=== PATIENT | male | born 1960 | race Caucasian/White ===

== ENCOUNTER → 2024-01-23 10:25 | Outpatient (REF) | payer MEDICARE, BC, SELFPAY ==
[2024-01-23 11:25] LABS: Blood Urea Nitrogen 11 mg/dl (9-20); Calcium 9.8 mg/dl (8.4-10.2); Carbon Dioxide 27 mmol/L (22-30); Chloride 101 mmol/L (98-107); Glucose 114 mg/dl (70-99); Potassium 4.4 mmol/L (3.5-5.1); Sodium 140 mmol/L (135-145); eGFR > 60.00
== END ==
LOC: RAD 10:25
PROVIDERS: ATTENDING PHYSICIAN Hospitalist; FAMILY PHYSICIAN Internal Medicine; OTHER PHYSICIAN Internal Medicine Infectious Disease; REFERRING PHYSICIAN Colon & Rectal Surgery
DX: R10.32 Left lower quadrant pain (principal)
CPT/HCPCS: 36415; 74177; 80048; Q9967

== ENCOUNTER 2024-01-26 18:27 | Emergency (ER) | payer MEDICARE, BC, SELFPAY ==
[2024-01-26 18:31] VITALS: BP 109/98; BMI 41.4
[2024-01-26 18:55] LABS: Hematocrit 40.4 % (39.0-52.0); Hemoglobin 14.5 g/dL (13.0-18.0); Mean Corp Hgb Conc. 35.9 g/dL (33.0-37.0); Mean Corpuscular Volume 86.3 fL (80.0-94.0); Mean Platelet Volume 9.1 fL (7.4-10.4); Platelet Count 291 10^3/uL (130-400); Red Blood Cell Count 4.68 10^6/uL (4.70-6.10); Red Cell Dist. Width 13.1 % (11.5-14.5); White Blood Cell Count 11.5 10^3/uL (4.8-10.8)
[2024-01-26 19:11] LABS: ALT (SGPT) 64 U/L (0-50); AST (SGOT) 87 U/L (17-59); Albumin 3.3 g/dl (3.5-5.0); Alkaline Phosphatase 56 U/L (38-126); Blood Urea Nitrogen 24 mg/dl (9-20); Calcium 8.9 mg/dl (8.4-10.2); Carbon Dioxide 27 mmol/L (22-30); Chloride 96 mmol/L (98-107); Estimated Creatinine Clearance 106 ml/min; Glucose 132 mg/dl (70-99); Potassium 3.7 mmol/L (3.5-5.1); Sodium 133 mmol/L (135-145); Total Bilirubin 0.6 mg/dl (0.2-1.3); Total Protein 5.9 g/dl (6.3-8.2); eGFR > 60.00
[2024-01-26 20:00] VITALS: BP 148/93
[2024-01-26 21:00] VITALS: BP 144/68
[2024-01-26] MEDS: NSS 1000 IV (21:20)
[2024-01-26] MEDS: PEPCID 20 MG IV (21:20)
[2024-01-26] MEDS: DECADRON 10 MG IV (21:20)
[2024-01-26] MEDS: BENADRYL 25 MG IV (21:20)
[2024-01-26 22:00] VITALS: BP 155/98
--- NOTE | 2024-01-26 22:49 | ED.GENMED ---
History of Present Illness
General
Chief Complaint: Weakness
Source: patient
Exam Limitations: none
Time Seen by Provider: 01/26/24 20:53
History of Present Illness
History of Present Illness:
64-year-old male presents with generalized weakness sensation of feeling aloof and a rash. This started after starting Levaquin and Flagyl for diverticulitis. He had CT scan of his abdomen performed here in this hospital 2 days ago. He has had
Levaquin before without any issues but has never had Flagyl. He developed a rash starting today. He felt cognitively in the fog. He missed the chair and fell and was unable to get up. He states his abdominal pain that he had for the
diverticulitis is completely gone. He denies fevers or chills. No other complaints at this time
Past History
Past History
ED Past Medical History: Other (HIV)
ED Past Surgical History: Brain and Other (Lipoma removal abdomen)
Social History
Tobacco: Smoker
Alcohol: Occasional
Drug: None
Personal:
Phy Exam
Physical Exam
Physical Exam:
General: Well-appearing male no acute respiratory distress
HEENT: Normocephalic mucosa moist neck is supple
Heart: Bradycardic but regular
Lungs: Clear no wheeze
Abdomen is soft nontender nondistended no guarding rebound normal bowel sounds
Skin: Erythematous rash not raised petechial diffuse over the trunk arms and legs slightly pruritic but not painful
Extremities: Mild pitting edema bilateral lower extremities
Course
Orders/Labs/Results
Orders:
Orders
01/26/24 18:42
EKG [Electrocardiogram (*1)] Urgent
Reason for Study: Atrial Fibrillation
01/26/24 18:43
EKG- Treatment ONCE
01/26/24 18:46
Complete Blood Count/No Diff Urgent
Comprehensive Metabolic Panel Urgent
01/26/24 21:08
0.9% Sodium Chloride 1000 ml [Nss] 1,000 ml IV BOLUS
Dexamethasone Sod Phosphate [Decadron] 10 mg IV NOW STA
Diphenhydramine [Benadryl] 25 mg IV NOW STA
Famotidine [Pepcid] 20 mg IV NOW STA
Abnormal Lab Results
01/26/24
18:46
WBC 11.5 H 10^3/uL
(4.8-10.8)
RBC 4.68 L 10^6/uL
(4.70-6.10)
Sodium 133 L mmol/L
(135-145)
Chloride 96 L mmol/L
(98-107)
BUN 24 H mg/dl
(9-20)
Glucose 132 H mg/dl
(70-99)
AST 87 H U/L
(17-59)
ALT 64 H U/L
(0-50)
Total Protein 5.9 L g/dl
(6.3-8.2)
Albumin 3.3 L g/dl
(3.5-5.0)
01/26/24 18:46
01/26/24 18:46
Vital Signs
Initial and Last Documented VS:
Initial Vital Signs
Temp Pulse Resp BP Pulse Ox
98.1 F 74 16 109/98 95
01/26/24 18:31 01/26/24 18:31 01/26/24 18:31 01/26/24 18:31 01/26/24 18:31
Last Documented Vital Signs
Temp Pulse Resp BP Pulse Ox
98.1 F 55 15 144/68 98
01/26/24 18:31 01/26/24 21:00 01/26/24 21:00 01/26/24 21:00 01/26/24 21:00
MDM/Problems Addressed
Differential Diagnosis Includes:
Fatigue weakness rash after starting Levaquin and Flagyl. Question possible medication reaction. There is no sloughing of the skin or mucosal involvement to suggest Crisostomo-Boone's. Patient's abdominal pain is completely resolved. I reviewed
his CAT scan from 3 days ago that was performed as an outpatient with demonstrate mild acute sigmoid diverticulitis. Clinically there is no tenderness on exam. No fever here. Patient has had multiple antibiotic allergies. At this point we
discussed the option for stopping any antibiotics given his resolution of pain and potential reaction to either the Levaquin or Flagyl. He was okay with this. He is given fluids here Benadryl Pepcid and Decadron and the rash was significantly
improved. Patient expresses his desire to go home. At this point no indication for admission. Stable for discharge
*Critical Care Note
Total Time (30-74mins, 75-104mins- exclusive of procedures): Not Applicable
ED Attending Note
-
Portions of this chart may have been created with voice recognition software.� Occasional wrong word or��sound alike� substitutions may have occurred due to the inherent limitations of voice recognition software.
Discharge Plan
Departure
Patient Disposition: Home (Routine Discharge)
Date of Disposition: 01/26/24
Time of Disposition: 22:59
Patient with high blood pressure during this ER visit?: No
Discharge Problem:
Adverse drug reaction
Instructions: Generalized Weakness (DC)
Prescriptions:
No Action
furosemide 40 MG tablet
40 mg PO DAILY
levetiracetam 500 MG tablet
500 mg PO BID
gabapentin 300 MG capsule
300 mg PO TID
aspirin 81 MG tablet,chewable
81 mg PO DAILY
montelukast 10 MG tablet
10 mg PO QPM
albuterol sulfate 1 PUFF HFA aerosol inhaler
2 puff inhalation R Q4HPRN PRN (Reason: asthma)
emtricitabine-tenofovir (TDF) [Truvada] 1 EACH tablet
1 tab PO DAILY
atazanavir [Reyataz] 300 MG capsule
300 mg PO DAILY
ritonavir 100 MG tablet
100 mg PO DAILY
docosahexaenoic acid-epa 1 CAP capsule
1 cap PO BID
Co Q-10
1 tab PO DAILY
Vitamin E :
1 tab PO DAILY
mupirocin 1 APPLIC ointment
1 applic topical TID Qty: 30 0RF
Referrals:
Hilton Coy MD [Family Provider] -
Activity Restrictions/Additional Instructions:
Continue with Benadryl if needed for rash. Drink plenty of fluids. Stop antibiotics for now. Return for worsening symptoms
Interventions
Interventions:
*Risk Screen - Suicide Last Done: 01/26/24 18:31
*General Assessment Last Done: 01/26/24 18:31
*Neglect/Abuse Screening Last Done: 01/26/24 18:31
*ED COVID-19 Vaccine History Last Done: 01/26/24 18:31
ED- Cardiac Assessment Last Done: 01/26/24 20:10
ED- Neurological Assessment Last Done: 01/26/24 20:10
ED- Pulmonary Assessment Last Done: 01/26/24 20:10
Discharge Date and Time
Print Language: FINNISH
== END 2024-01-26 23:15 | disposition home or self-care (01) ==
LOC: EMR 18:27
PROVIDERS: EMERGENCY PHYSICIAN Emergency Medicine; FAMILY PHYSICIAN Internal Medicine
DX: R53.1 Weakness (principal); R21 Rash and other nonspecific skin eruption; T50.905A Adverse effect of unspecified drugs, medicaments and biological substances, initial encounter; F17.200 Nicotine dependence, unspecified, uncomplicated
CPT/HCPCS: 99284; 96374; 96375 ×2; 96361; 80053; 85027; 93005

== ENCOUNTER 2024-02-26 19:45 | Inpatient (IN) | payer MEDICARE, BC, SELFPAY ==
[2024-02-26 16:38] VITALS: BP 139/98
--- NOTE | 2024-02-26 16:50 | EDRN ---
1GM tylenol given in triage at 1642, unable to scan and administer in JUL because pts weight is not verified.
1000mg PO Tylenol given in triage.
[2024-02-26] MEDS: TYLENOL 1000 MG PO (16:54)
--- NOTE | 2024-02-26 17:23 | ED.GENMED ---
History of Present Illness
General
Chief Complaint: Fever
Time Seen by Provider: 02/26/24 17:23
History of Present Illness
History of Present Illness:
TIME OF INITIAL ENCOUNTER: 5:30 PM
HPI: Patient presents after abnormal CT of the abdomen pelvis was obtained. He was recently treated for diverticulitis with Cipro and Bactrim. He more recently had a general unwell feeling and ended up having another CT today which was abnormal.
After he came back from CT he was febrile and did not feel well in general. He came to the closest hospital which is [facility] however he is known to [facility] as well. He has been seen by [facility] in the past who performed a
colonoscopy about 8 years ago but he never had any surgeries.
EXAM:
GENERAL: Appears somewhat weak and debilitated
HEENT: Moist oral mucosa
CARDIOVASCULAR: No murmurs, tachycardic heart rate, regular rhythm, No chest wall tenderness
PULMONARY: No respiratory distress, breath sounds are clear and equal
ABDOMEN: Soft with no peritoneal signs, no tenderness, elevated BMI noted however there is no significant tenderness
NEUROLOGIC: Excellent strength all extremities, no coordination deficits
PSYCHIATRIC: Appropriate mental status, normal insight and judgement
EXTREMITIES: Nontender, no edema, moves all extremities equally
SKIN: Very warm to touch consistent with fever
NUMBER AND COMPLEXITY OF PROBLEMS ADDRESSED AT THE ENCOUNTER
� Chronic conditions affecting care: Diverticular disease, diabetes, HIV positive but undetectable recently, smoker
� Acute Exacerbation and/or Progression of Chronic Illness: This is an acute problem
� Differential Diagnosis includes: Diverticulitis, C. difficile, colitis
AMOUNT AND/OR COMPLEXITY OF DATA TO BE REVIEWED AND ANALYZED
� I performed an independent evaluation of and my interpretation is:
EKG: Sinus 111, diffuse ST depression new in comparison to 01/26/2024 and is also tachycardic now as well
CT: CT scan from earlier today shows 'progress severe acute diverticulitis of the distal sigmoid with new probable inflamed diverticulum however air filled developing abscess cannot be excluded'�I personally reviewed these
images and agree with radiologist interpretation
X-rays:
Laboratory Studies: Lactic 3.4, white count 9.0, hemoglobin 14.1, potassium 3.4
Other:
� Review of other/old records: I reviewed the recent old records, more significant leukocytosis was noted in 2016
� Clinical information was obtained by an independent historian: I spoke to the son at bedside
� Prescriptions/Medications Considered but not given:
� Further testing considered but not performed:
RISK OF COMPLICATIONS AND/OR MORBIDITY OR MORTALITY OF PATIENT MANAGEMENT
� Social determinants of health affecting care: Lives at home
� Discussion with other providers: Since patient states he did not tolerate penicillins and Flagyl and an ID doctor that he is aware of recommended moxifloxacin, I consulted Dr. Mercado via [place] text who recommended ertapenem 1 g
every 24 hours; Dr. Giang for admission
� Escalation of care including admission/observation vs risk of discharge considered: Since patient has worsening CT findings of diverticulitis and now febrile and generally has an unwell feeling, will admit for IV antibiotics
ANY OTHER UPDATES:
Past History
Past History
ED Past Medical History: Other (HIV)
ED Past Surgical History: Brain and Other (Lipoma removal abdomen)
Social History
Tobacco: Smoker
Alcohol: Occasional
Drug: None
Personal:
Phy Exam
Physical Exam
Physical Exam:
See HPI
Course
Orders/Labs/Results
Orders:
Orders
02/26/24 16:43
Acetaminophen [Tylenol] 1,000 mg .ROUTE .STK-MED ONE
Acetaminophen [Tylenol] 1,000 mg PO NOW STA
02/26/24 16:46
Electrocardiogram (*1) Urgent
Reason for Study: Other
Other Reason for Exam: Possible Sepsis
EKG- Treatment ONCE
02/26/24 17:08
Complete Blood Count/With Diff Urgent
Comprehensive Metabolic Panel Urgent
Lactic Acid Stat
Troponin I Urgent
02/26/24 17:44
0.9% Sodium Chloride 1000 ml [Nss] 1,000 ml IV BOLUS
02/26/24 17:46
0.9% Sodium Chloride 1000 ml [Nss] 1,000 ml IV BOLUS
02/26/24 17:48
Ertapenem [Invanz] 1,000 mg 0.9% Sodium Chloride [Nss] 50 ml IV NOW
02/26/24 17:51
STOOL [C difficile Antigen & Toxins] Urgent
JARAD Source: Feces/Stool
Specimen Description:
Stool Culture Urgent
JARAD Source: Feces/Stool
Specimen Description:
02/26/24 18:07
Blood Culture Urgent
JARAD Source: Blood/Venous
Specimen Description:
02/26/24 18:23
Blood Culture Routine
JARAD Source: Blood/Venous
Specimen Description:
02/26/24 18:24
Ertapenem [Invanz] 1,000 mg 0.9% Sodium Chloride [Nss] 50 ml IV NOW
02/26/24 18:34
Admit/Transfer Patient As Directed
Co-Sign Provider:
Level of Care: Inpatient admission
Assign to:: Medical/Surgical
Physician / Group: nuris
Diagnosis: sepsis diverticulitis
Reason for Hospitalization: sepsis diverticulitis
Expected length of stay greater than two midnights?: Yes
ELOS- Estimated Length of Stay in days: 2
I certify the patient meets the requirements for IP care: Yes
Code Status As Directed
Resuscitation Status: Full Code
PRN Pain Medication Management As Directed
May give lesser potent ordered pain med per pt: Yes
preference::
Protocol:: Medication orders for pain may be administered in a
manner that supports deferring to patient preference
when the pt is:
- Requesting an ordered lesser potent pain medication.
Least to most potent pain medications are defined
as: acetaminophen < NSAID < tramadol < opioids
(morphine, oxycodone, hydromorphone).
- Requesting a lesser dose of the same medication IF
ORDERED.
- Requesting a less intrusive route of administration
if both routes are prescribed by the provider (PO <
IV).
02/26/24 18:38
Stool Culture Urgent
JARAD Source: Feces/Stool
Specimen Description:
02/26/24 18:39
C difficile Antigen & Toxins Urgent
JARAD Source: Feces/Stool
Specimen Description:
Potassium Chloride [KCl] 40 meq PO NOW STA
Abnormal Lab Results
02/26/24
17:08
RBC 4.61 L 10^6/uL
(4.70-6.10)
Abs Immat Gran (auto) 0.1 H 10^3/uL
(0-0.05)
Absolute Neuts (auto) 8.1 H 10^3/uL
(1.4-6.5)
Absolute Lymphs (auto) 0.7 L 10^3/uL
(1.2-3.4)
Immature Gran % 0.6 H %
(0-0.5)
Neutrophils % 90.1 H %
(42.2-75.2)
Lymphocytes % 8.3 L %
(20.5-51.1)
Monocytes % 0.8 L %
(1.7-9.3)
Potassium 3.4 L mmol/L
(3.5-5.1)
Chloride 94 L mmol/L
(98-107)
Carbon Dioxide 31 H mmol/L
(22-30)
Glucose 127 H mg/dl
(70-99)
Lactic Acid 3.4 H mmol/L
(0.7-2.0)
02/26/24 17:08
02/26/24 17:08
Vital Signs
Initial and Last Documented VS:
Initial Vital Signs
Temp Pulse Resp BP Pulse Ox
103 F H 109 16 139/98 92
02/26/24 16:38 02/26/24 16:38 02/26/24 16:38 02/26/24 16:38 02/26/24 16:38
Last Documented Vital Signs
Temp Pulse Resp BP Pulse Ox
102.3 F H 109 16 139/98 92
02/26/24 18:14 02/26/24 16:38 02/26/24 16:38 02/26/24 16:38 02/26/24 16:38
*Critical Care Note
Total Time (30-74mins, 75-104mins- exclusive of procedures): Not Applicable
ED Attending Note
-
Portions of this chart may have been created with voice recognition software.� Occasional wrong word or��sound alike� substitutions may have occurred due to the inherent limitations of voice recognition software.
Discharge Plan
Departure
Patient Disposition: Admit
Date of Disposition: 02/26/24
Time of Disposition: 17:51
Presentation/result/management discussed w/ accepting MD/DO: Hospitalist
Discharge Problem:
Diverticulitis
Prescriptions:
No Action
furosemide 40 MG tablet
40 mg PO DAILY
levetiracetam 500 MG tablet
500 mg PO BID
gabapentin 300 MG capsule
300 mg PO TID
montelukast 10 MG tablet
10 mg PO HS
docosahexaenoic acid-epa 1 CAP capsule
1 cap PO BID
Theragen Tablet
1 tab PO DAILY
metformin 1,000 mg Tablet
1,000 mg PO BID
coenzyme Q10 [CoQ-10] 100 mg Capsule
100 mg PO DAILY
rosuvastatin 10 mg Tablet
10 mg PO HS
Januvia 100 mg Tablet
100 mg PO HS
Visbiome 112.5 billion cell Capsule
1 cap PO DAILY
Biktarvy 50-200-25 mg Tablet
1 tab PO DAILY
turmeric 400 mg Capsule
400 mg PO DAILY
fenugreek seed 610 mg Capsule
610 mg PO HS
Referrals:
Hilton Coy MD [Family Provider] -
Interventions
Interventions:
*Risk Screen - Suicide Last Done: 02/26/24 16:38
*General Assessment Last Done: 02/26/24 18:04
*Neglect/Abuse Screening Last Done: 02/26/24 18:04
ED- Fall Risk Assessment Last Done: 02/26/24 18:04
*ED COVID-19 Vaccine History Last Done: 02/26/24 18:04
ED- Neurological Assessment Last Done: 02/26/24 18:04
ED-Skin Assessment Last Done: 02/26/24 18:04
Discharge Date and Time
Print Language: PORTUGUESE
[2024-02-26 17:27] LABS: % Basophils 0.1 % (0-2); % Eosinophils 0.1 % (0-6); % Immature Granulocytes 0.6 % (0-0.5); % Lymphocytes 8.3 % (20.5-51.1); % Monocytes 0.8 % (1.7-9.3); % Neutrophils 90.1 % (42.2-75.2); Absolute Immature Granulocytes 0.1 10^3/uL (0-0.05); Absolute Lymphocytes 0.7 10^3/uL (1.2-3.4); Absolute Monocytes 0.1 10^3/uL (0.1-0.6); Absolute Neutrophils 8.1 10^3/uL (1.4-6.5); Hematocrit 40.8 % (39.0-52.0); Hemoglobin 14.1 g/dL (13.0-18.0); Mean Corp Hgb Conc. 34.6 g/dL (33.0-37.0); Mean Corpuscular Hgb 30.6 pg (27.0-31.0); Mean Corpuscular Volume 88.5 fL (80.0-94.0); Mean Platelet Volume 9.3 fL (7.4-10.4); Nucleated Red Blood Cells % 0 % (-); Platelet Count 390 10^3/uL (130-400); Red Blood Cell Count 4.61 10^6/uL (4.70-6.10); Red Cell Dist. Width 13.3 % (11.5-14.5)
[2024-02-26 17:37] LABS: ALT (SGPT) 27 U/L (0-50); Alkaline Phosphatase 75 U/L (38-126); Blood Urea Nitrogen 15 mg/dl (9-20); Calcium 9.6 mg/dl (8.4-10.2); Carbon Dioxide 31 mmol/L (22-30); Chloride 94 mmol/L (98-107); Glucose 127 mg/dl (70-99); Lactic Acid 3.4 mmol/L (0.7-2.0); Potassium 3.4 mmol/L (3.5-5.1); Sodium 137 mmol/L (135-145); Total Bilirubin 0.6 mg/dl (0.2-1.3); eGFR > 60.00
[2024-02-26 17:46] LABS: AST (SGOT) 28 U/L (17-59)
[2024-02-26 18:02] LABS: Troponin I < 0.012 ng/ml
--- NOTE | 2024-02-26 18:39 | HPS.HSE ---
Family Physician
-
Family Physician: Hilton Coy
Chief Complaint
-
abdominal pain
History of Present Illness
64-year-old male past medical history of HIV, history of toxoplasmosis of brain, seizures, diabetes, diverticulitis in 2016 presenting with intermittent loose stools and abdominal cramping. He originally developed symptoms in December and came to the
emergency room in January and was diagnosed with diverticulitis and treated with outpatient Levaquin and Flagyl. He developed an allergic reaction to Flagyl with rash and syncope so he stopped taking antibiotics. He came to the hospital next day
and was treated with Benadryl and steroids. He was not offered any further treatment for diverticulitis. He has fevers.
He denies any nausea or vomiting. He denies chest pain or shortness of breath.
He reports that has been taking his HIV medications and his recent CD4 count has been excellent.
Denies smoking alcohol use.
Medical History
Past Medical History
Past Medical History: Reports Other ( HIV, history of toxoplasmosis of brain, seizures, diabetes, diverticulitis in 2016 )
Past Surgical History: Reports None
Social History
Tobacco: Non-smoker
Alcohol: None
Drug: None
Family History
Family History: Not pertinent
Allergies / Home Medications
Allergies reflects when Allergies were last updated in [facility].
Home Medications with original date entered in [facility]
Allergy/Medication List:
Allergies
Allergy/AdvReac Type Severity Reaction Status Date / Time
Penicillins Allergy Unknown Unknown Verified 02/26/24 16:41
adhesive Allergy Unknown Verified 02/26/24 16:41
heparin Allergy Rash Verified 02/26/24 16:41
phenytoin sodium Allergy Unknown Verified 02/26/24 16:41
[From Dilantin]
phenytoin sodium extended Allergy Unknown Verified 02/26/24 16:41
[From Dilantin]
tetanus toxoid, adsorbed Allergy Unknown Verified 02/26/24 16:41
Home Medications
furosemide 40 mg tablet 40 mg PO DAILY 05/16/12
gabapentin 300 mg capsule 300 mg PO TID 05/16/12
levetiracetam 500 mg tablet 500 mg PO BID 05/16/12
montelukast 10 mg tablet 10 mg PO HS 05/16/12
docosahexaenoic acid (dha)-epa 120 mg-180 mg capsule 1 cap PO BID 09/24/15
Lactobac no.2-Bifidobac no.1-S. thermo 112.5 billion cell capsule (Visbiome) 1 cap PO DAILY 02/26/24
bictegravir 50 mg-emtricitabine 200 mg-tenofovir alafenam 25 mg tablet (Biktarvy) 1 tab PO DAILY 02/26/24
coenzyme Q10 100 mg capsule (CoQ-10) 100 mg PO DAILY 02/26/24
fenugreek seed 610 mg capsule 610 mg PO HS 02/26/24
metformin 1,000 mg tablet 1,000 mg PO BID 02/26/24
rosuvastatin 10 mg tablet 10 mg PO HS 02/26/24
sitagliptin phosphate 100 mg tablet (Januvia) 100 mg PO HS 02/26/24
therapeutic multivitamin 1 tab PO DAILY 02/26/24
turmeric 400 mg capsule 400 mg PO DAILY 02/26/24
Review of Systems
-
History Source: Patient
A 12 point ROS was completed and negative except as noted: Yes
Constitutional: Reports No Symptoms
EENT: Reports No Symptoms
Respiratory: Reports No Symptoms
Cardiac: Reports No Symptoms
Abdomen/GI: Reports No Symptoms
: Reports No Symptoms
Musculoskeletal: Reports No Symptoms
Skin: Reports No Symptoms
Neurological: Reports No Symptoms
Endocrine: Reports No Symptoms
Hematologic/Lymphatic: Reports No Symptoms
Psych: Reports No Symptoms
Physical Exam
Vital Signs
Vital Signs
Temp Pulse Resp BP Pulse Ox
102.3 F H 109 16 139/98 92
02/26/24 18:14 02/26/24 16:38 02/26/24 16:38 02/26/24 16:38 02/26/24 16:38
Physical Exam
General: Well Developed, Well Nourished and No Apparent Distress
HEENT: NormoCephalic, Moist mucous membranes and Atraumatic
Respiratory: Clear
Cardiac: S1/S2 and Regular Rhythm; No Murmur or Rub
GI: Soft, Non Tender, Non Distended and Normal Bowel Sounds; No Organomegaly
Rectal: Deferred by Provider
Musculoskeletal: No Clubbing, No Cyanosis and No Edema
Skin: No Rash
Neuro: Nonfocal/grossly intact
Laboratory Results
-
02/26/24 17:08
02/26/24 17:08
Laboratory Results
Lactic Acid 3.4 mmol/L (0.7-2.0) H 02/26/24 17:08
Total Bilirubin 0.6 mg/dl (0.2-1.3) 02/26/24 17:08
AST 28 U/L (17-59) 02/26/24 17:08
ALT 27 U/L (0-50) 02/26/24 17:08
Alkaline Phosphatase 75 U/L (38-126) 02/26/24 17:08
Troponin I < 0.012 ng/ml 02/26/24 17:08
Data Reviewed
-
Lab Data: Labs Reviewed by me
Old Records: Reviewed
Impression/Plan
-
IMPRESSION:
PLAN:
# Sepsis (fever, tachycardia) secondary to ongoing untreated diverticulitis of distal sigmoid colon
-CT scan shows progress severe acute diverticulitis of distal sigmoid colon, probable inflamed diverticulum, air-filled developing abscess cannot be excluded
-Check blood cultures
-IV fluids
-N.p.o.
-Ertapenem recommended by ID
-Colorectal consulted
-Hold Lasix, presumably given for lymphedema
-Check stool culture, C. difficile
# Hypokalemia
-Replete potassium
History of HIV
-Continue Biktarvy
History of toxoplasmosis of brain
-Treated many years ago
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
-Continue Keppra
Type 2 diabetes
-Hold sitagliptin, metformin
Diabetic neuropathy
-Continue gabapentin
Hyperlipidemia
-Continue statin
Full code
DVT prophylaxis�heparin
N.p.o.
[2024-02-26] MEDS: NSS 1000 IV ×3 (18:47→22:21)
[2024-02-26] MEDS: KCL 40 MEQ PO (18:53)
[2024-02-26] MEDS: INVANZ 60 MG IV (19:57)
[2024-02-26 20:06] VITALS: BP 130/67
[2024-02-26 21:44] VITALS: BP 130/72; BMI 39.3
[2024-02-26 23:00] VITALS: BP 132/82
[2024-02-26 23:12] LABS: Glucose - Point of Care 132 mg/dl (70-99)
[2024-02-27 00:21] LABS: Lactic Acid 2.2 mmol/L (0.7-2.0)
[2024-02-27] MEDS: TYLENOL 650 MG PO (00:24)
[2024-02-27 00:28] VITALS: BP 132/82
[2024-02-27] MEDS: MOTRIN 400 MG PO (02:36)
--- NOTE | 2024-02-27 04:29 | PTCARENOTE ---
Patient received from ED via stretcher and ambulated with assist to bed using a rolling walker. He was oriented to room and surroundings. HRR. Dry NPC, MILLER. Abdomen obese. +1 LE edema. Skin red all over but no noted rash. Initially patient
stated that is his baseline then later said he noticed redness on day of admission but couldn't remember when it started. Placed on 2lpm nasal cannula for Sat 91%. T on arrival 98.6. Tylenol for T 101.8 at routine rounds. with repeat to 102.9.
Discussed with GENERAL ADMINISTRATOR, covering house, via TT. Continue IVF as ordered. Motrin for aches as per order and ice packs for elevated Temp. repeat Lactic 2.2. Follow up T 100.2. Sat 94% on 2lpm nasal cannula. Patient sleeping comfortable at this
time.
--- NOTE | 2024-02-27 05:56 | PTCARENOTE ---
Lab tach reported left Ac skin tear from prior dressing. Nonadhesive foam dressing applied.
[2024-02-27 06:14] LABS: Hemoglobin 13.8 g/dL (13.0-18.0); Mean Corp Hgb Conc. 35.4 g/dL (33.0-37.0); Mean Corpuscular Volume 87.6 fL (80.0-94.0); Mean Platelet Volume 9.2 fL (7.4-10.4); Platelet Count 328 10^3/uL (130-400); Red Blood Cell Count 4.45 10^6/uL (4.70-6.10); Red Cell Dist. Width 13.6 % (11.5-14.5); White Blood Cell Count 23.9 10^3/uL (4.8-10.8)
[2024-02-27 06:36] LABS: Lactic Acid 1.9 mmol/L (0.7-2.0)
[2024-02-27 06:44] LABS: % Basophils 0.3 % (0-2); % Eosinophils 0.1 % (0-6); % Immature Granulocytes 0.7 % (0-0.5); % Lymphocytes 1.6 % (20.5-51.1); % Neutrophils 96.3 % (42.2-75.2); Absolute Basophils 0.1 10^3/uL (0-0.2); Absolute Immature Granulocytes 0.2 10^3/uL (0-0.05); Absolute Lymphocytes 0.4 10^3/uL (1.2-3.4); Absolute Monocytes 0.2 10^3/uL (0.1-0.6); Nucleated Red Blood Cells % 0 % (-)
[2024-02-27 07:17] LABS: ALT (SGPT) 26 U/L (0-50); AST (SGOT) 62 U/L (17-59); Albumin 2.7 g/dl (3.5-5.0); Alkaline Phosphatase 58 U/L (38-126); Blood Urea Nitrogen 22 mg/dl (9-20); Calcium 7.9 mg/dl (8.4-10.2); Carbon Dioxide 26 mmol/L (22-30); Chloride 100 mmol/L (98-107); Estimated Creatinine Clearance 67 ml/min; Glucose 106 mg/dl (70-99); Potassium 3.5 mmol/L (3.5-5.1); Sodium 136 mmol/L (135-145); Total Bilirubin 0.6 mg/dl (0.2-1.3); Total Protein 5.3 g/dl (6.3-8.2); eGFR 51.35
--- NOTE | 2024-02-27 07:21 | W.PN.HOSP.TC ---
Addendum entered and electronically signed by Angel Treadwell MD 02/27/24 14:50:
will be transferred to [facility] when bed available
-Accepted by Dr. Nathan on 02/27/2024
Addendum entered and electronically signed by Angel Treadwell MD 02/27/24 13:41:
presenitng with severe diverticulitis
-difficult case due to # of atb allergic to.
- -states allergic to flagyl and after recieving ertapnem had a reaction of diffuse erthema and itchiness
-if consult
-provide cipro and ?clinda
-ivf
-npo, can advance diet slowly to clears if nv improved
-no further diarrhea, last bm was small, soft and formed.
Original Note:
Today's Communication/Plan
-
Consulted infectious diseases and colorectal surgery. Patient was given ertapenem but states that he had an allergic reaction. Possibly might need to change antibiotics to 1 that he can tolerate or rule out that he had an allergic reaction in the
first place. Colorectal surgery consulted in order to assess risk of perforation or further diagnostic studies.
Assessment / Plan
Assessment / Plan
HPI: Patient is a 64-year-old male with a past medical history of HIV, toxoplasmosis of the brain, seizures, diabetes, and diverticulitis in 2015 presented to the emergency department with intermittent loose stools and abdominal cramping. He was
recently treated for diverticulitis with ciprofloxacin and Bactrim in January. He developed an allergic reaction of Flagyl with rash and syncope so he stopped taking the antibiotic. He came to the hospital the next day and was treated with
Benadryl and steroids. He had a general feeling of being unwell and ended up having another CT in the emergency department on the day of his presentation which showed progress severe acute diverticulitis of the distal sigmoid colon with new
probable inflamed diverticulum. After he came back from the CT he was febrile and did not feel well in general. He came to the city [facility] hospital which is [place] however he is known to [facility] as well. He was seen by [facility] in the
past and had a colonoscopy around 8 years ago. He has never had any surgeries. He denied any nausea or vomiting or chest pain or shortness of breath. He reported that he had been taking his HIV medications and his CD4 count had been excellent.
The patient was admitted to [facility] for acute diverticulitis.
Impression/Plan:
-Sepsis secondary to ongoing untreated diverticulitis of the distal sigmoid colon:
Patient presented to the emergency department with fever and tachycardia. Body temperature 103F, HR 129, BP 139/98
CT scan showed progress of severe acute diverticulitis of the distal sigmoid colon with new probable inflamed diverticulum.
Check blood culture
IV fluid support
N.p.o. status
Will consult infectious diseases consult�patient stated that he had an allergic reaction to ertapenem
Will consult colorectal
Lasix held�presumably given for lymphedema
Check stool culture
Check for C. difficile
Follow Lactic Acid
Consider further outpatient imaging with MRI - pancreatic cysts
Elevated WBCs at 23.9 on 02/27/2024
Recommend outpatient GI follow-up 6 to 8 weeks following discharge
-Hypokalemia:
Patient had a potassium of 3.5 in the emergency department -repleted
-Acute kidney injury:
Patient may be suffering from CKD stage II-IIIa -will need further lab testing to confirm
Creatinine increased at 1.5 on 02/27/2024
-Medical history of HIV:
Continue Biktarvy
-Medical history of toxoplasmosis of the brain:
Treated many years ago
Monitor patient and follow labs
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
Continue levetiracetam 500 mg twice daily
-Type 2 diabetes:
Holding sitagliptin and metformin
-Diabetic neuropathy:
Continue gabapentin
-Hyperlipidemia:
Continue rosuvastatin 10 mg daily
Full CODE STATUS
DVT prophylaxis: Lovenox
Data:
-Abdomen/pelvis CT scan conducted on 02/26/2024:
Progressed severe acute diverticulitis of the distal sigmoid colon. New probable inflamed diverticulum. However, an air-filled developing abscess cannot be excluded.
Moderate fecal material throughout the colon. Progressed
Hepatic fatty infiltration. Stable
Gallstones. Stable
Pancreatic cysts. Stable. MRI examination recommended for further characterization.
Anticipated Discharge: > 48 hours
Subjective/Interval History
-
Date of Service: February 27, 2024
Objective Data
-
Labs:
Laboratory Results
02/27/24
05:53
WBC 23.9 H
Hgb 13.8
Hct 39.0
Plt Count 328
Sodium 136
Potassium 3.5
Chloride 100
Carbon Dioxide 26
BUN 22 H
Creatinine 1.5 H
Glucose 106 H
Calcium 7.9 L D
Total Bilirubin 0.6
AST 62 H
ALT 26
Alkaline Phosphatase 58
Vital Signs:
Vital Signs
Temp Pulse Resp BP Pulse Ox
100.2 F 89 18 132/82 93
02/27/24 03:00 02/26/24 23:00 02/26/24 23:00 02/26/24 23:00 02/27/24 03:00
I&O
02/26/24 02/27/24 02/28/24
06:59 06:59 06:59
Intake Total 240 / 240
Balance 240 / 240
[2024-02-27] MEDS: NSS 1000 IV ×2 (08:02→17:28)
[2024-02-27 08:25] VITALS: BMI 40.1
[2024-02-27 08:25] LABS: Glucose - Point of Care 112 mg/dl (70-99)
[2024-02-27 08:52] VITALS: BP 96/53
[2024-02-27 09:40] VITALS: BP 110/59
[2024-02-27] MEDS: BIKTARVY 50-200-25 MG TABLET 1 TABLET PO (11:08)
[2024-02-27] MEDS: KEPPRA 500 MG PO ×2 (11:08→19:54)
[2024-02-27 12:18] LABS: Glucose - Point of Care 105 mg/dl (70-99)
[2024-02-27 12:31] VITALS: BMI 40.1
[2024-02-27] MEDS: BENADRYL 25 MG PO (13:17)
--- NOTE | 2024-02-27 13:49 | CON.CRS ---
Consultation
-
Performing Provider: Spencer Lees MD
Reason for Consultation: diverticulitis
Medical History
-
History of Present Illness:
Patient is a 64-year-old male with PMH of HIV (diagnosed many years ago, on Biktarvy, reports his last CD4 count was greater than the thousand), history of toxoplasmosis of the brain s/p craniotomy 2005, complicated by DVT s/p IVC filter (not on
AC), seizure disorder, type 2 diabetes, recurrent diverticulitis (last episode in 2016, treated nonoperatively) who presents with persistent pressure associated with BMs, diarrhea and fevers. He initially presented in December to the ER with cramping
and diarrhea. He underwent a CT at that time which showed acute sigmoid diverticulitis. He was initially treated with antibiotics, but had a reaction and these were stopped. He has had persistent symptoms over the last month. Over the last
couple of days, he developed malaise/generalized weakness, and a diffuse rash, associated with the persistent loose stools and abdominal pressure. His last colonoscopy was with Dr. Cook in 2015, which he reports as normal and was told to repeat
it in 8 years.
He states that his ID doctor is also at [place]. When he presented to [place] in 2016 for diverticulitis, he states that he was told that he needed emergency surgery and was sent to [place] via helicopter. He also states that after arriving at
[place], they said [place] 'used the wrong antibiotic' and he only required admission for 2 days at [place]. He feels that this rash that he has is associated with the antibiotic that he is receiving here. He also indicated that he does not
trust the doctors as much here and trusts the doctors at [place] much more.
Past Medical History
Past Medical History: Other (As above)
Past Surgical History: Other (As above, right THR 2011, left TKR in 2019)
Allergies / Home Medications
Allergy/AdvReac Type Severity Reaction Status Date / Time
adhesive Allergy Unknown Verified 02/26/24 16:41
heparin Allergy Rash Verified 02/26/24 16:41
Penicillins Allergy Unknown Verified 02/26/24 21:12
phenytoin sodium Allergy Unknown Verified 02/26/24 16:41
[From Dilantin]
phenytoin sodium extended Allergy Unknown Verified 02/26/24 16:41
[From Dilantin]
tetanus toxoid, adsorbed Allergy Unknown Verified 02/26/24 16:41
�Medication �Instructions �Recorded �Confirmed �Type
furosemide 40 mg tablet 40 mg PO DAILY Fluid 05/16/12 02/26/24 History
Retention/Swelling
gabapentin 300 mg capsule 300 mg PO TID Neurological 05/16/12 02/26/24 History
Condition
levetiracetam 500 mg tablet 500 mg PO BID Seizures 05/16/12 02/26/24 History
montelukast 10 mg tablet 10 mg PO HS Allergies 05/16/12 02/26/24 History
docosahexaenoic acid (dha)-epa 120 1 cap PO BID 09/24/15 02/26/24 History
mg-180 mg capsule
Lactobac no.2-Bifidobac no.1-S. 1 cap PO DAILY Gastrointestinal 02/26/24 02/26/24 History
thermo 112.5 billion cell capsule Issue
(Visbiome)
bictegravir 50 mg-emtricitabine 1 tab PO DAILY HIV 02/26/24 02/26/24 History
200 mg-tenofovir alafenam 25 mg
tablet (Biktarvy)
coenzyme Q10 100 mg capsule 100 mg PO DAILY Supplement 02/26/24 02/26/24 History
(CoQ-10)
fenugreek seed 610 mg capsule 610 mg PO HS 02/26/24 02/26/24 History
metformin 1,000 mg tablet 1,000 mg PO BID Diabetes 02/26/24 02/26/24 History
rosuvastatin 10 mg tablet 10 mg PO HS High Cholesterol 02/26/24 02/26/24 History
sitagliptin phosphate 100 mg 100 mg PO HS Diabetes 02/26/24 02/26/24 History
tablet (Januvia)
therapeutic multivitamin 1 tab PO DAILY Supplement 02/26/24 02/26/24 History
turmeric 400 mg capsule 400 mg PO DAILY 02/26/24 02/26/24 History
Review of Systems
-
A 10 point review of systems was completed, and was negative except as per HPI.
Physical Exam
Vital Signs
Temp 98.3 F 02/27/24 08:52
Pulse 97 02/27/24 08:52
Resp Rate 18 02/27/24 08:52
Blood pressure 110/59 02/27/24 09:40
SaO2 97 02/27/24 09:40
02/26/24 02/27/24 02/28/24
06:59 06:59 06:59
Actual Weight 127.913 kg 130.209 kg
Body Mass Index (BMI) 40.1
Lab Results / Allergies
02/27/24 05:53
02/27/24 05:53
WBC 23.9 10^3/uL (4.8-10.8) H 02/27/24 05:53
Hgb 13.8 g/dL (13.0-18.0) 02/27/24 05:53
Hct 39.0 % (39.0-52.0) 02/27/24 05:53
Plt Count 328 10^3/uL (130-400) 02/27/24 05:53
Abs Immat Gran (auto) 0.2 10^3/uL (0-0.05) H 02/27/24 05:53
Neutrophils % 96.3 % (42.2-75.2) H 02/27/24 05:53
Allergy/AdvReac Type Severity Reaction Status Date / Time
adhesive Allergy Unknown Verified 02/26/24 16:41
heparin Allergy Rash Verified 02/26/24 16:41
Penicillins Allergy Unknown Verified 02/26/24 21:12
phenytoin sodium Allergy Unknown Verified 02/26/24 16:41
[From Dilantin]
phenytoin sodium extended Allergy Unknown Verified 02/26/24 16:41
[From Dilantin]
tetanus toxoid, adsorbed Allergy Unknown Verified 02/26/24 16:41
Physical Exam
General: Well Developed, Well Nourished and Other (Having shivers, no apparent distress)
HEENT: Normocephalic and Atraumatic
Respiratory: Non Labored Respirations
GI: Soft, Non Tender (No rebound or guarding) and Non Distended
Skin: Warm and Other (Blanching, warm erythema seen over the trunk, neck and shoulders)
Neuro: Awake, Alert and AO x 3
Data Reviewed
-
CT Scan: Image Personally Visualized and interpreted, Discussed with Physician, Discussed with Patient and Discussed with Family
Labs: Labs Reviewed by me, Discussed with Patient and Discussed with Family
Assessment / Plan
-
64-year-old male with PMH of HIV (diagnosed many years ago, on Biktarvy, reports his last CD4 count was greater than the thousand), history of toxoplasmosis of the brain s/p craniotomy 2005, complicated by DVT s/p IVC filter (not on AC), seizure
disorder, type 2 diabetes, recurrent diverticulitis (last episode in 2016, treated nonoperatively) who presents with persistent pressure associated with BMs, diarrhea and fevers. He initially presented in December to the ER with cramping and
diarrhea. He underwent a CT at that time which showed acute sigmoid diverticulitis. He was initially treated with antibiotics, but had a reaction and these were stopped. He has had persistent symptoms over the last month. Over the last couple of
days, he developed malaise/generalized weakness, and a diffuse rash, associated with the persistent loose stools and abdominal pressure. His last colonoscopy was with Dr. Cook in 2015, which he reports as normal and was told to repeat it in 8
years. In the ED, WBC was initially 9, lactate 3.4, improved after fluids. Febrile to 103.1. Initially tachycardic, but heart rate now 80s to 90s, normotensive. CT showing persistent acute sigmoid diverticulitis, with possible inflamed
diverticulum, cannot rule out developing abscess; no perforation or free air noted
WBC 23.9 this a.m., Cr 1.5
-Recurrent versus persistent/smoldering acute diverticulitis without complication; no evidence of hemodynamic instability or peritonitis, so no emergent surgical intervention currently necessary
�Will need serial abdominal exams; explained to that we can attempt nonoperative measures, but if he worsens, he may need surgery, which would include an open incision and likely ostomy; he stated that he really did not want an ostomy, but I
explained the risks involved with making a connection in the acute setting, including anastomotic leak
� He indicated a desire for transfer to [place] to be with his usual doctors; will relay the message to primary
� Recommend n.p.o. with aggressive IV resuscitation
�Okay for DVT PPx
� Continue broad-spectrum antibiotics; recommend ID consult to evaluate for possible antibiotic reaction
�Follow-up stool studies
� Recommend pain control
� Appreciate hospitalist
[2024-02-27] MEDS: NEURONTIN 300 MG PO (15:08)
[2024-02-27 15:15] VITALS: BP 97/52
--- NOTE | 2024-02-27 15:49 | CON.ID ---
Consultation
-
Date/Time Consultation Requested: 02/27/2024 0935
Date/Time Consultation Performed: 02/27/2024 1500
Requesting Provider: Dr. Hartmann
Performing Provider: Dr. Mercado
Reason for Consultation: Diverticulitis
Chief Complaint / Past History
History of Present Illness
Fritz Patterson is a 64-year-old man being evaluated at the request of Dr. Hartmann regarding diverticulitis. History is obtained from chart review, along with patient interview.
The patient has a significant history of longstanding diverticulitis and notes he has been overall doing well until mid December when he began to have some episodes of diarrhea. Around Day, he again began to feel generally sick, noting no
abdominal pain but ongoing diarrhea. He notes that he spoke with his vacuum extractor operator at [facility] who initially advised some Motrin. He subsequently contacted his PCP and imaging was performed on 01/22 (acute sigmoid diverticulitis with
surrounding edema and stranding. See below for more complete details from report). He notes that he was prescribed levofloxacin and Flagyl, but developed significant dizziness the next day. On 01/25 he was seen here at the ER after sustaining a
fall. It was decided upon at that time to discontinue further antibiotics as he was clinically improved. The patient reports that he has had intermittent loose stool since that time.
On 02/25 he reports that he developed trembling and fever at home so he presented to the emergency room for further evaluation. Given multiple prior noted antibiotics he was started on ertapenem, but today is developed a significant generalized
rash. Infectious Diseases is asked to comment upon further antimicrobial therapy.
Currently, the patient denies any abdominal discomfort.
Past History
Additional Past Medical History:
HIV (dx 2005; hx toxo. VL<20; CD4~1K. Biktarvy)
Obesity
Gastric lipoma
Diverticulitis
Additional Past Surgical History:
Right total hip replacement
Left knee replacement
Allergy History:
ertapenem Allergy (Severe, Verified 02/27/24 15:42)
Rash (this admission)
adhesive Allergy (Verified 02/26/24 16:41)
Unknown
heparin Allergy (Verified 02/26/24 16:41)
Rash
Penicillins Allergy (Verified 02/27/24 15:42)
Rash
phenytoin sodium [From Dilantin] Allergy (Verified 02/26/24 16:41)
Unknown
phenytoin sodium extended [From Dilantin] Allergy (Verified 02/26/24 16:41)
Unknown
tetanus toxoid, adsorbed Allergy (Verified 02/26/24 16:41)
Unknown
Patient also reports rash to metronidazole
Medications Reviewed: Yes
Current Antibiotics:
Ertapenam (D/C'ed)
Social History
Tobacco: Former Smoker
Alcohol: None
Drug: None
Family History
Family History: Not Pertinent
Review of Systems
Vital Signs
Temp Pulse Resp BP Pulse Ox
99.1 F 97 18 110/59 97
02/27/24 12:15 02/27/24 08:52 02/27/24 08:52 02/27/24 09:40 02/27/24 09:40
Physical Exam
Physical Exam
Constitutional: No Acute Distress, Non-toxic and Obese
Head: Normocephalic
Eyes: Pupils Equal, Pupils Round, No Conjunctival Hemorrhage and Sclera Anicteric
Oral: No Thrush and No Ulcers
Cardiovascular: Regular Rate and S1/S2; Negative S3/S4
Pulmonary: Clear and Non Labored; Negative Wheezes, Rales or Rhonchi
Gastrointestinal: Soft, Non Tender, Non Distended, Normal Bowel Sounds, No Rebound and No Guarding
Genito-Urinary: Negative Jacinto
Extremities: Erythema; Negative Edema or Cyanosis
Skin: Rash (Diffuse generalized body erythema noted.)
Wound: None
Neurological: Awake and Alert
Psychological: Calm
Lab / Diagnostic Study Results
02/27/24 05:53
02/27/24 05:53
Abs Immat Gran (auto) 0.2 10^3/uL (0-0.05) H 02/27/24 05:53
Absolute Neuts (auto) 23.0 10^3/uL (1.4-6.5) H 02/27/24 05:53
Absolute Lymphs (auto) 0.4 10^3/uL (1.2-3.4) L 02/27/24 05:53
Absolute Monos (auto) 0.2 10^3/uL (0.1-0.6) 02/27/24 05:53
Absolute Basos (auto) 0.1 10^3/uL (0-0.2) 02/27/24 05:53
Immature Gran % 0.7 % (0-0.5) H 02/27/24 05:53
Neutrophils % 96.3 % (42.2-75.2) H 02/27/24 05:53
Lymphocytes % 1.6 % (20.5-51.1) L 02/27/24 05:53
Monocytes % 1.0 % (1.7-9.3) L 02/27/24 05:53
Eosinophils % 0.1 % (0-6) 02/27/24 05:53
Basophils % 0.3 % (0-2) 02/27/24 05:53
Lactic Acid 1.9 mmol/L (0.7-2.0) 02/27/24 05:53
Microbiology Results
Micro:
02/27/24 08:43 C. difficile GDH Antigen & Toxins - Final
Feces/Stool Negative for toxigenic C.difficile
02/27/24 08:43 Salmonella/Shigella Culture - Pending
Feces/Stool Campylobacter Culture - Pending
Shiga Toxin Test - Pending
02/26/24 18:23 Blood Culture - Pending
Blood/Venous
02/26/24 18:07 Blood Culture - Pending
Blood/Venous
Imaging:
02/26/2024 CT abdomen/pelvis with contrast: There is moderate fecal material throughout the colon. There is mild diverticulosis. There is severe pericolonic stranding about the distal sigmoid colon with moderate bowel wall thickening concerning for
acute diverticulitis. There is a predominantly air-filled adjacent probable inflamed diverticulum on image 63 series 201 measuring 1.9 cm. No free air is noted. Please see full dictation for additional detail. Film personally viewed.
Assessment / Plan
Acute diverticulitis
Drug rash suspected secondary to ertapenem (dosed last PM)
Fevers
- trending down
Multiple drug allergies including penicillins, metronidazole, ertapenem
HIV
- stable. Undetectable viral load and normal CD4 count.
Obesity
Recommendations:
Ertapenem has been discontinued and marked as an allergy
Will transition antibiotics to clindamycin and ciprofloxacin.
Watch for rash improvement.
Follow white count and temperature curve.
Chart has been reviewed, and patient has been accepted in transfer to [facility].
--- NOTE | 2024-02-27 15:54 | CM ---
met with patient at bedside.patient lives with son in pt's house.he has no adali,his bed and bath is on second level,he ambulates I ,is I with his adl's ,his pcp is dr lis hernandez .his pharmacy is [facility]. [facility] and has not been to [facility].
dme:cane,walker.NO home oxygen
PMH:toxoplsmosis of brain,hiv+,diabetes,diverticulitis
patient is adm with sepsis.he has many abx allergies.he will transferred to [facility].Plan:transfer to [facility] when bed is available.
[2024-02-27] MEDS: CLEOCIN 50 IV (16:40)
[2024-02-27] MEDS: LOVENOX 40 MG SC (17:28)
[2024-02-27 18:14] LABS: Glucose - Point of Care 110 mg/dl (70-99)
--- NOTE | 2024-02-27 18:47 | W.DCSUMMARY ---
Discharge Summary
Discharge Data
Date of Admission: 02/26/24
Date of Discharge: 02/28/24
-
Pending Results: No
Hospital Course
Patient is a 64-year-old male with a past medical history of HIV, toxoplasmosis of the brain, seizures, diabetes, and diverticulitis in 2015 presented to the emergency department with intermittent loose stools and abdominal cramping. He was
recently treated for diverticulitis with ciprofloxacin and Bactrim in January. He developed an allergic reaction of Flagyl with rash and syncope so he stopped taking the antibiotic. He came to the hospital the next day and was treated with
Benadryl and steroids. He had a general feeling of being unwell and ended up having another CT in the emergency department on the day of his presentation which showed progress severe acute diverticulitis of the distal sigmoid colon with new
probable inflamed diverticulum. After he came back from the CT he was febrile and did not feel well in general. He came to the closest hospital which is [place] however he is known to [place] as well. He was seen by [facility] in the
past and had a colonoscopy around 8 years ago. He has never had any surgeries. He denied any nausea or vomiting or chest pain or shortness of breath. He reported that he had been taking his HIV medications and his CD4 count had been excellent.
The patient was admitted to [facility] for acute diverticulitis.
Patient was given IV fluid support and remained on n.p.o. status during this admission. Infectious diseases was consulted. Patient stated that he had an allergic reaction to the ertapenem that he received. Colorectal surgery was consulted. Lasix
was held. CT scan also showed pancreatic cysts that may require more outpatient imaging with an MRI. Patient was suffering from hypokalemia which was repleted during this admission. The patient's antibiotics were transitioned to clindamycin and
ciprofloxacin by infectious diseases. Patient shared with colorectal surgery that he knew an Infectious diseases doctor at [place] who was familiar with his case. The patient felt that his care would be best served at [facility]
and requested that he be transferred to that hospital for further care.
The patient has requested to be transferred to [facility] for further medical care. The risks and benefits of this transfer have been discussed and the patient has decided to move forward with being transferred to [facility]. The patient has been recommended to continue with his treatment for acute diverticulitis. The patient has been diagnosed with acute diverticulitis and is being transferred to [facility] for further care.
Discharge Plan
-
Patient Disposition: Acute Care Hospital
Condition: Fair
Discharge Orders:
Discharge Patient (As Directed); Ordered 02/27/24
Ordered By: Sangeeta Hartmann
Discharge Date and Time
Discharge Date/Time: 02/27/24 20:27
Print Language: GEORGIAN
[2024-02-27] MEDS: FLUAD (65 yr+) 2024-2025 FORMULA 0.5 ML IM (18:52)
[2024-02-27] MEDS: CIPRO 500 MG PO (19:54)
== END 2024-02-27 20:27 | disposition short-term general hospital (02) | DRG 872 ==
LOC: 3 WEST ACU 19:45
PROVIDERS: Nurse Practitioner Family; ADMITTING PHYSICIAN Hospitalist; ATTENDING PHYSICIAN Hospitalist; CONSULT PHYSICIAN Internal Medicine Infectious Disease; CONSULT PHYSICIAN Surgery; EMERGENCY PHYSICIAN Emergency Medicine; FAMILY PHYSICIAN Internal Medicine
DX: A41.9 Sepsis, unspecified organism (principal); K57.32 Diverticulitis of large intestine without perforation or abscess without bleeding; K86.2 Cyst of pancreas; N17.9 Acute kidney failure, unspecified; Z68.41 Body mass index [BMI] 40.0-44.9, adult; G40.909 Epilepsy, unspecified, not intractable, without status epilepticus; E11.40 Type 2 diabetes mellitus with diabetic neuropathy, unspecified; E66.9 Obesity, unspecified; Z21 Asymptomatic human immunodeficiency virus [HIV] infection status; Z95.828 Presence of other vascular implants and grafts; N18.31 Chronic kidney disease, stage 3a; I89.0 Lymphedema, not elsewhere classified; E78.00 Pure hypercholesterolemia, unspecified; E87.6 Hypokalemia; F17.200 Nicotine dependence, unspecified, uncomplicated; Z79.84 Long term (current) use of oral hypoglycemic drugs; Z79.899 Other long term (current) drug therapy; Z86.718 Personal history of other venous thrombosis and embolism; Z86.19 Personal history of other infectious and parasitic diseases; Z88.0 Allergy status to penicillin; Z88.1 Allergy status to other antibiotic agents; Z88.8 Allergy status to other drugs, medicaments and biological substances; Z96.641 Presence of right artificial hip joint; Z96.652 Presence of left artificial knee joint
CPT/HCPCS: 74177; 80053; 82962; 83605; 84484; 85025; 87040; 87045; 87046; 87077; 87324; 87427; 87449; 90662; 93005; 96361; 96365; 99284; G0008; J1335; Q9967

== ENCOUNTER → 2024-08-19 07:37 | Outpatient (REF) | payer MEDICARE, BC, SELFPAY ==
[2024-08-19 11:23] LABS: Body Fluid for Eosinophils 1%
== END ==
LOC: REG 07:37
PROVIDERS: ATTENDING PHYSICIAN Hospitalist; FAMILY PHYSICIAN Internal Medicine; OTHER PHYSICIAN Internal Medicine Infectious Disease
DX: E11.29 Type 2 diabetes mellitus with other diabetic kidney complication (principal)
CPT/HCPCS: 36415; 81099

== ENCOUNTER 2024-10-12 09:34 | Emergency (ER) | payer MEDICARE, BC, SELFPAY ==
[2024-10-12 09:36] VITALS: BP 139/89
[2024-10-12 09:51] VITALS: BMI 35.4
--- NOTE | 2024-10-12 12:52 | ED.GENMED ---
History of Present Illness
General
Chief Complaint: Skin Surface Trauma
Source: patient
Exam Limitations: none
Time Seen by Provider: 10/12/24 10:24
History of Present Illness
History of Present Illness:
This is a 64-year-old male with a history of diabetes and HIV who presents after he injured his right leg. The patient was initially seen in urgent care and sent here for further evaluation of his leg wound. Patient states he is allergic to
tetanus. 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 Patient states it was bleeding but was able to put a dressing on it.
Past History
Past History
ED Past Medical History: HTN, Hypercholesterolemia, NIDDM and Other (HIV, diverticulitis, seizures, DVT, IVC filter)
ED Past Surgical History: Brain and Other (Lipoma removal abdomen)
Social History
Tobacco: Smoker
Alcohol: Occasional
Drug: None
Personal:
Phy Exam
Physical Exam
Physical Exam:
CONSTITUTIONAL Vital signs reviewed, Patient alert and oriented to person, place and time. Well-appearing
HEAD atraumatic, normocephalic.
EYES eyelids normal to inspection, Extraocular muscles intact, Conjunctiva normal, Sclera normal.
NECK normal range of motion, Trachea midline, no jugular venous distention.
RESP no respiratory distress
BACK No obvious deformities
UPPER EXTREMITY Gross Range of motion normal, gross motor strength normal
LOWER EXTREMITY Gross range of motion normal, Gross motor strength normal. There is a V-shaped flap laceration noted to the anterior mid geller on the right. At the distal end is somewhat superficial but becomes deeper more proximally. There is no
active bleeding. The wound is approximately 8 cm in total length.
NEURO Speech normal, No focal motor deficits include, [place] coma scale 15, Memory normal, Cranial Nerves intact to screening exam.
SKIN Skin warm, dry, and normal in color.
PSYCHIATRIC Patient oriented to person place and time, Normal affect.
Course
Vital Signs
Initial and Last Documented VS:
Initial Vital Signs
Temp Pulse Resp BP Pulse Ox
98.3 F 80 16 139/89 96
10/12/24 09:36 10/12/24 09:36 10/12/24 09:36 10/12/24 09:36 10/12/24 09:36
Last Documented Vital Signs
Temp Pulse Resp BP Pulse Ox
98.3 F 80 16 139/89 96
10/12/24 09:36 10/12/24 09:36 10/12/24 09:36 10/12/24 09:36 10/12/24 09:36
Procedures
Laceration Closure
Right Leg:
Status of Wound: clean
Size of Wound in cm: 8
Description of Wound Edges: sharp and ragged
Preparation: cleaned with saline and cleaned with Betadine
Anesthesia: 1% Lidocaine with epi and added Na Bicarb to local
Revision/Debridement: irrigate-direct pressure
Wound exploration: explored to base- no FB
Type of Closure: single layer closure, interrupted sutures (3 interrupted sutures), mattress sutures (5 horizontal mattress sutures applied), Dermabond-skin glue and running stitch (2.5 cm running stitch)
Skin Closure Material: 4-0 nylon
Additional information:
See above for numbers of sutures
MDM/Problems Addressed
MDM/Problems Addressed:
Large leg laceration
*Pulse Oximetry
Patient hypoxic: no
*Critical Care Note
Total Time (30-74mins, 75-104mins- exclusive of procedures): Not Applicable
Data Reviewed
Source: patient
Further Testing Considered But Not Given:
Considered imaging but patient has been ambulatory and superficial wound only.
Patient Management
Escalation/DeEscalation of care consider admission/obs:
History of allergy to tetanus toxoid. The patient's wound was irrigated extensively. First with saline and then edges and wound cleaned again with saline and edges cleaned with Betadine. Required several horizontal mattress sutures to take up the
tension. Then a running stitch at the end where there was thin skin. In addition, it was covered with the mesh Dermabond product. I feel this was necessary to bolster the skin edges given the amount of tension that was on the wound and its
location. Bulky dressing applied.
ED Attending Note
-
Portions of this chart may have been created with voice recognition software.� Occasional wrong word or��sound alike� substitutions may have occurred due to the inherent limitations of voice recognition software.
Discharge Plan
Departure
Patient Disposition: Home (Routine Discharge)
Date of Disposition: 10/12/24
Time of Disposition: 12:52
Patient with high blood pressure during this ER visit?: No
Discharge Problem:
Laceration of leg
Instructions: Laceration Repair With Glue (DC), Laceration Repair With Stitches (DC)
Prescriptions:
New
doxycycline monohydrate 100 mg tablet
100 mg PO BID Qty: 20 0RF
No Action
furosemide 40 MG tablet
40 mg PO DAILY
levetiracetam 500 MG tablet
500 mg PO BID
gabapentin 300 MG capsule
300 mg PO TID
montelukast 10 MG tablet
10 mg PO HS
docosahexaenoic acid-epa 1 CAP capsule
1 cap PO BID
Theragen Tablet
1 tab PO DAILY
metformin 1,000 mg Tablet
1,000 mg PO BID
coenzyme Q10 [CoQ-10] 100 mg Capsule
100 mg PO DAILY
rosuvastatin 10 mg Tablet
10 mg PO HS
Januvia 100 mg Tablet
100 mg PO HS
Visbiome 112.5 billion cell Capsule
1 cap PO DAILY
Biktarvy 50-200-25 mg Tablet
1 tab PO DAILY
turmeric 400 mg Capsule
400 mg PO DAILY
fenugreek seed 610 mg Capsule
610 mg PO HS
Referrals:
Hilton Coy MD [Family Provider] -
Activity Restrictions/Additional Instructions:
Please keep wound clean. Please see wound care in follow-up in the next 1 week. Sutures can be removed in 2 weeks after the glue begins to dissolve. If after 2 weeks the wound appears healed but the glue has not dissolved, Vaseline can be used to
remove the glue and subsequently remove the stitches. Please return immediately for redness, drainage, fevers or any other concerns.
Interventions
Interventions:
*Risk Screen - Suicide Last Done: 10/12/24 09:51
*General Assessment Last Done: 10/12/24 09:51
*Neglect/Abuse Screening Last Done: 10/12/24 09:51
*ED- Fall Risk Assessment Last Done: 10/12/24 09:51
*ED COVID-19 Vaccine History Last Done: 10/12/24 09:51
ED-Skin Assessment Last Done: 10/12/24 09:51
Discharge Date and Time
Print Language: [place]
[2024-10-12] MEDS: VIBRAMYCIN 100 MG PO ×2 (13:01→13:04)
[2024-10-12 13:06] VITALS: BP 142/78
== END 2024-10-12 13:07 | disposition home or self-care (01) ==
LOC: EMR 09:34
PROVIDERS: EMERGENCY PHYSICIAN Emergency Medicine; FAMILY PHYSICIAN Internal Medicine
DX: S81.811A Laceration without foreign body, right lower leg, initial encounter (principal); W45.8XXA Other foreign body or object entering through skin, initial encounter; W22.8XXA Striking against or struck by other objects, initial encounter; Y93.01 Activity, walking, marching and hiking; I10 Essential (primary) hypertension; E11.9 Type 2 diabetes mellitus without complications; E78.00 Pure hypercholesterolemia, unspecified; Z21 Asymptomatic human immunodeficiency virus [HIV] infection status; K57.92 Diverticulitis of intestine, part unspecified, without perforation or abscess without bleeding; R56.9 Unspecified convulsions; F17.200 Nicotine dependence, unspecified, uncomplicated; Z86.718 Personal history of other venous thrombosis and embolism; Z88.7 Allergy status to serum and vaccine; Z88.0 Allergy status to penicillin; Z88.8 Allergy status to other drugs, medicaments and biological substances; Z91.048 Other nonmedicinal substance allergy status
CPT/HCPCS: 13121; 99283; 13122

== ENCOUNTER → 2024-10-19 07:47 | Outpatient (REF) | payer MEDICARE, BC, SELFPAY | LOC: WOUND 07:47 | PROVIDERS: ATTENDING PHYSICIAN Surgery; FAMILY PHYSICIAN Internal Medicine | DX: S81.811A Laceration without foreign body, right lower leg, initial encounter (principal); E11.9 Type 2 diabetes mellitus without complications; B20 Human immunodeficiency virus [HIV] disease; X58.XXXA Exposure to other specified factors, initial encounter; Y93.H2 Activity, gardening and landscaping | CPT/HCPCS: 99203 ==

== ENCOUNTER → 2024-10-26 08:24 | Outpatient (REF) | payer MEDICARE, BC, SELFPAY | LOC: WOUND 08:24 | PROVIDERS: ATTENDING PHYSICIAN Surgery; FAMILY PHYSICIAN Internal Medicine | DX: S81.811A Laceration without foreign body, right lower leg, initial encounter (principal); E11.9 Type 2 diabetes mellitus without complications; B20 Human immunodeficiency virus [HIV] disease; W22.8XXA Striking against or struck by other objects, initial encounter; Y93.H2 Activity, gardening and landscaping | CPT/HCPCS: 99213 ==

== ENCOUNTER → 2024-11-02 08:27 | Outpatient (REF) | payer MEDICARE, BC, SELFPAY | LOC: WOUND 08:27 | PROVIDERS: ATTENDING PHYSICIAN Surgery; FAMILY PHYSICIAN Internal Medicine | DX: S81.811A Laceration without foreign body, right lower leg, initial encounter (principal); E11.9 Type 2 diabetes mellitus without complications; B20 Human immunodeficiency virus [HIV] disease; W22.8XXA Striking against or struck by other objects, initial encounter; Y93.H2 Activity, gardening and landscaping | CPT/HCPCS: 99213 ==

== ENCOUNTER → 2024-11-16 08:25 | Outpatient (REF) | payer MEDICARE, BC, SELFPAY | LOC: WOUND 08:25 | PROVIDERS: ATTENDING PHYSICIAN Surgery; FAMILY PHYSICIAN Internal Medicine | DX: S81.811A Laceration without foreign body, right lower leg, initial encounter (principal); E11.9 Type 2 diabetes mellitus without complications; B20 Human immunodeficiency virus [HIV] disease; L03.115 Cellulitis of right lower limb; X58.XXXA Exposure to other specified factors, initial encounter | CPT/HCPCS: 11042 ==

== ENCOUNTER → 2024-11-30 08:34 | Outpatient (REF) | payer MEDICARE, BC, SELFPAY | LOC: WOUND 08:34 | PROVIDERS: ATTENDING PHYSICIAN Surgery; FAMILY PHYSICIAN Internal Medicine | DX: S81.811A Laceration without foreign body, right lower leg, initial encounter (principal); E11.9 Type 2 diabetes mellitus without complications; B20 Human immunodeficiency virus [HIV] disease; L03.115 Cellulitis of right lower limb | CPT/HCPCS: 99212 ==

== ENCOUNTER → 2025-05-06 10:36 | Outpatient (REF) | payer MEDICARE, BC, SELFPAY | LOC: HWRAD 10:36 | PROVIDERS: ATTENDING PHYSICIAN Internal Medicine | DX: Z87.891 Personal history of nicotine dependence (principal); Z72.0 Tobacco use | CPT/HCPCS: 71271 ==